=== PATIENT | male | born 1970 | race Caucasian/White ===

== ENCOUNTER 2020-07-18 11:32 | Emergency (ER) | payer MEDICARE, MEDICAID ==
[~2020-07-18] VITALS: Ht 195.6 cm; Wt 136.1 kg
[2020-07-18 15:01] VITALS: BP 111/60
== END 2020-07-18 16:51 | disposition home or self-care (01) ==
LOC: ER 11:32
DX: G89.4 Chronic pain syndrome (principal); M54.2 Cervicalgia; F17.210 Nicotine dependence, cigarettes, uncomplicated; Z89.611 Acquired absence of right leg above knee; Z76.0 Encounter for issue of repeat prescription; Z88.6 Allergy status to analgesic agent

== ENCOUNTER 2024-11-19 12:38 | Emergency (ER) | payer MEDICARE, MEDICAID ==
[~2024-11-19] VITALS: Ht 195.6 cm; Wt 118.1 kg
[2024-11-19 12:40] VITALS: BP 126/49; PULSE 86; RESP 18; TEMP 97.7; O2SAT 98
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
== END 2024-11-19 14:17 | disposition home or self-care (01) ==
LOC: ER 12:38
DX: Z45.2 Encounter for adjustment and management of vascular access device (principal); F17.210 Nicotine dependence, cigarettes, uncomplicated; F12.90 Cannabis use, unspecified, uncomplicated; J45.909 Unspecified asthma, uncomplicated; Z89.611 Acquired absence of right leg above knee; Z88.5 Allergy status to narcotic agent